=== PATIENT | female | born 1980 | race Caucasian/White ===

== ENCOUNTER → 2020-05-23 | Day surgery (SDC) | payer MEDICARE, MEDICAID ==
[~2020-05-23] MED LIST: BUSP5TAB78 PO; CHOL20007 PO; DexAMETHasone SOD PHOS 10MG/1ML VIAL INJ ONE; HYDR-4798 PO; HYDROmorphone HCL 2 MG/ML VL IV PRN; KETOROLAC TROMETH 30 MG/ML 1ML VIAL IV ONE; LABETALOL HCL 5 MG/ML 4ML SYRINGE IV PRN; LEVO125T7 PO; MIDAZOLAM HCL 1MG/1ML-2 ML VIAL IV PRN; MIDAZOLAM HCL 1MG/1ML-2 ML VIAL ONE; MORPHINE SULFATE 4 MG/ML SYR/VIAL IV PRN; ONDANSETRON HCL 4 MG/2 ML VIAL IV PRN; PROPOFOL 10 MG/ML 20 ML IV ONE; ePHEDrine SULFATE 50 MG/ML AMP IV PRN; fentaNYL CITRATE 100 MCG/2 ML VL ONE
[2020-05-23 09:00] VITALS: BP 140/75
== END | disposition home or self-care (01) ==
LOC: SUR 06:22
PROVIDERS: ATTEND Orthopaedic Surgery Sports Medicine
DX: M75.02 Adhesive capsulitis of left shoulder (principal); E10.42 Type 1 diabetes mellitus with diabetic polyneuropathy; G89.29 Other chronic pain; F31.9 Bipolar disorder, unspecified; Z88.0 Allergy status to penicillin; Z79.4 Long term (current) use of insulin; Z79.899 Other long term (current) drug therapy; Z98.891 History of uterine scar from previous surgery; Z98.890 Other specified postprocedural states; Z20.822 Contact with and (suspected) exposure to COVID-19; Z87.891 Personal history of nicotine dependence
CPT/HCPCS: 23700; 36415; 73020; 82962; 84702; J1100; J2250; J2704; J3010; U0003; 76000

== ENCOUNTER 2022-01-14 11:56 | Emergency (ER) | payer MEDICARE, MEDICAID ==
[~2022-01-14] VITALS: Ht 152.4 cm; Wt 50.0 kg
[~2022-01-14 11:56] MED LIST changes: -DexAMETHasone SOD PHOS 10MG/1ML VIAL INJ ONE; -HYDROmorphone HCL 2 MG/ML VL IV PRN; -KETOROLAC TROMETH 30 MG/ML 1ML VIAL IV ONE; -LABETALOL HCL 5 MG/ML 4ML SYRINGE IV PRN; -MIDAZOLAM HCL 1MG/1ML-2 ML VIAL IV PRN; -MIDAZOLAM HCL 1MG/1ML-2 ML VIAL ONE; -MORPHINE SULFATE 4 MG/ML SYR/VIAL IV PRN; -ONDANSETRON HCL 4 MG/2 ML VIAL IV PRN; -PROPOFOL 10 MG/ML 20 ML IV ONE; -ePHEDrine SULFATE 50 MG/ML AMP IV PRN; -fentaNYL CITRATE 100 MCG/2 ML VL ONE
[2022-01-14] MEDS ORDERED: LIDOCAINE 1% HCL (LOCAL ANESTH.) INJ 20ML MDV ID ONE (13:45)
[2022-01-14] MEDS ORDERED: CEPH-510 PO (14:31)
[2022-01-14] MEDS ORDERED: ACET-1158 PO (14:31)
[2022-01-14] MEDS ORDERED: IBUP600T27 PO (14:31)
[2022-01-14 14:52] VITALS: BP 108/78
== END 2022-01-14 14:58 | disposition home or self-care (01) ==
LOC: ER 11:56
DX: L02.31 Cutaneous abscess of buttock (principal); Z79.899 Other long term (current) drug therapy; Z88.0 Allergy status to penicillin
CPT/HCPCS: 10060; 99283; J2001

== ENCOUNTER 2022-01-28 19:54 | Inpatient (IN) | payer MEDICARE, MEDICAID ==
[~2022-01-28] VITALS: Ht 154.9 cm; Wt 57.0 kg
[~2022-01-28 19:54] MED LIST changes: +ACET-1158 PO; +CEPH-510 PO; +IBUP600T27 PO
[2022-01-28] MEDS ORDERED: ONDANSETRON ODT 4 MG TAB PO ONE (22:30)
[2022-01-28] MEDS ORDERED: MORPHINE SULFATE INJ 2 MG/ml SYRG IV ONE (22:30)
[2022-01-28] MEDS ORDERED: ACETAMINOPHEN 325 MG TAB PO PRN (22:45)
[2022-01-28] MEDS ORDERED: TEMAZEPAM 15 MG CAP PO PRN (22:45)
[2022-01-28] MEDS ORDERED: HYDROcodone-ACET 5/325MG TAB PO PRN (22:45)
[2022-01-28] MEDS ORDERED: ONDANSETRON HCL 4 MG/2 ML VIAL IV PRN (22:45)
[2022-01-28] MEDS ORDERED: MORPHINE SULFATE INJ 2 MG/ml SYRG IV PRN (22:45)
[2022-01-28 22:54] LABS: Basophils # (auto) 0.1 10 ^3/uL (0-0.2); Basophils % (auto) 0.6 % (0.0-2.0); Eosinophils # (auto) 0 10 ^3/uL (0-0.8); Eosinophils % (auto) 0.1 % (0.0-7.0); Hematocrit 37.1 % (36.0-46.0); Hemoglobin 12.6 g/dL (12.2-16.2); Lymphocytes # (auto) 0.7 10 ^3/uL (0.4-5.4); Lymphocytes % (auto) 4.5 % (10.0-50.0); Mean Corpuscular Hemoglobin 29.7 pg (28.0-32.0); Mean Corpuscular Volume 87.3 fL (80.0-100.0); Monocytes # (auto) 0.3 10 ^3/uL (0-1.3); Monocytes % (auto) 2.3 % (0.0-12.0); Neutrophils # (auto) 13.3 10 ^3/uL (1.6-8.6); Neutrophils % (auto) 92.5 % (37.0-80.0); Red Blood Cells 4.25 10^6/uL (4.0-5.20); Red Cell Distribution Width 13.8 % (11.8-14.3); White Blood Cell 14.4 10^3/uL (4.4-10.8)
[2022-01-28] MEDS: SODIUM CHLORIDE 0.9% 1,000 ML IV SCH (23:04)
[2022-01-28 23:08] LABS: INR 1.02 (0.9-1.15); Partial Thromboplastin Time 26.4 sec (24.6-33.4)
[2022-01-28 23:14] LABS: Albumin 3.7 g/dL (3.4-5.0); BUN/Creatinine Ratio 21.4; Calcium 8.7 mg/dL (8.5-10.1); Potassium 3.8 mmol/L (3.5-5.1)
[2022-01-28 23:17] LABS: Bilirubin, Total 0.4 mg/dL (0.2-1.0); Total Protein 7.5 g/dL (6.4-8.2)
[2022-01-29 05:00] VITALS: BP 101/61
[2022-01-29] MEDS ORDERED: DEXTROSE (50%) 50ML SYRG IV PRN ×2 (05:00→15:30)
[2022-01-29] MEDS ORDERED: ONDANSETRON HCL 4 MG/2 ML VIAL IV PRN ×3 (05:00→15:30)
[2022-01-29 05:09] LABS: Basophils # (auto) 0.1 10 ^3/uL (0-0.2); Basophils % (auto) 0.7 % (0.0-2.0); Eosinophils # (auto) 0 10 ^3/uL (0-0.8); Eosinophils % (auto) 0.2 % (0.0-7.0); Hematocrit 37.3 % (36.0-46.0); Hemoglobin 12.5 g/dL (12.2-16.2); Lymphocytes # (auto) 1.2 10 ^3/uL (0.4-5.4); Lymphocytes % (auto) 10.1 % (10.0-50.0); Mean Corpuscular Hemoglobin 29.5 pg (28.0-32.0); Mean Corpuscular Hgb Conc. 33.5 g/dL (32.0-36.0); Mean Corpuscular Volume 87.9 fL (80.0-100.0); Monocytes # (auto) 0.6 10 ^3/uL (0-1.3); Monocytes % (auto) 5.1 % (0.0-12.0); Neutrophils # (auto) 9.6 10 ^3/uL (1.6-8.6); Neutrophils % (auto) 83.9 % (37.0-80.0); Red Blood Cells 4.25 10^6/uL (4.0-5.20); Red Cell Distribution Width 13.7 % (11.8-14.3); White Blood Cell 11.4 10^3/uL (4.4-10.8)
[2022-01-29 05:24] LABS: Albumin 3.7 g/dL (3.4-5.0); Potassium 4.5 mmol/L (3.5-5.1)
[2022-01-29 05:29] LABS: BUN/Creatinine Ratio 20.6; Bilirubin, Total 0.7 mg/dL (0.2-1.0); Total Protein 6.8 g/dL (6.4-8.2)
[2022-01-29 05:30] VITALS: BP 101/61
[2022-01-29] MEDS: InsuLIN REG 1unit/0.01ml Soln (100units/ml) SC SCH ×4 (05:55→22:00)
[2022-01-29] MEDS: ACCU-CHEK COMFORT CURVE STRIP VI SCH ×4 (05:55→22:09)
[2022-01-29] MEDS ORDERED: DULO1CAP5 PO (07:52)
[2022-01-29 08:39] VITALS: BP 107/61
[2022-01-29] MEDS ORDERED: PANTOPRAZOLE 40 MG/10 ML VIAL INJ IV SCH (10:00)
[2022-01-29] MEDS ORDERED: ceFAZolin 1GM/50ML 100 ML IV ONE (10:21)
[2022-01-29] MEDS ORDERED: CLINDAMYCIN 600MG IV 50 ML IV ONE (10:23)
[2022-01-29] MEDS: SODIUM CHLORIDE 0.9% 1,000 ML IV SCH (12:05)
[2022-01-29] MEDS ORDERED: BUPIVACAINE 0.5% P/F INJ 10 ML VIAL ONE (13:07)
[2022-01-29] MEDS ORDERED: DexAMETHasone SOD PHOS 10MG/1ML VIAL INJ ONE (13:33)
[2022-01-29] MEDS ORDERED: KETOROLAC TROMETH 30 MG/ML 1ML VIAL ONE (13:33)
[2022-01-29] MEDS ORDERED: PROPOFOL 10 MG/ML 20 ML IV ONE (13:33)
[2022-01-29] MEDS ORDERED: ONDANSETRON HCL 4 MG/2 ML VIAL ONE (13:33)
[2022-01-29] MEDS ORDERED: SODIUM CHLORIDE LOCK 30 ML ONE (13:33)
[2022-01-29] MEDS ORDERED: PHENYLEPHRINE HCL 10 MG/ML VL ONE (13:33)
[2022-01-29] MEDS ORDERED: LIDOCAINE 1% INJ PF 5ML AMP ONE (13:33)
[2022-01-29] MEDS ORDERED: GLYCOPYRROLATE 0.2 MG/ML 1ML VIAL ONE (13:33)
[2022-01-29] MEDS ORDERED: SODIUM CHLORIDE LOCK 10 ML ONE (14:13)
[2022-01-29] MEDS ORDERED: HYDROmorphone HCL 2 MG/ML VL/or syr IV PRN ×2 (15:15→15:30)
[2022-01-29] MEDS ORDERED: ACETAMINOPHEN 325 MG TAB PO PRN (15:15)
[2022-01-29] MEDS: LACTATED RINGER'S 1,000 ML IV SCH (15:15)
[2022-01-29] MEDS ORDERED: FLUMAZENIL 0.1 MG/ML INJ 10ML MDV IV PRN (15:30)
[2022-01-29] MEDS ORDERED: hydrALAZINE HCL 20 MG/ML VL IV PRN (15:30)
[2022-01-29] MEDS ORDERED: NALOXONE HCL 0.4 MG/ML VIAL IV PRN (15:30)
[2022-01-29] MEDS ORDERED: LABETALOL HCL 5 MG/ML 4ML SYRINGE IV PRN (15:30)
[2022-01-29] MEDS ORDERED: fentaNYL CITRATE 100 MCG/2 ML VL IV PRN (15:30)
[2022-01-29] MEDS ORDERED: ePHEDrine SULFATE 50 MG/ML AMP IV PRN (15:30)
[2022-01-29 16:46] VITALS: BP 111/52
[2022-01-29] MEDS: CLINDAMYCIN 600MG IV 50 ML IV SCH ×2 (18:29→23:47)
[2022-01-29 22:00] VITALS: BP 96/52
[2022-01-29] MEDS: DOCUSATE SOD 100 MG CAP PO SCH (22:09)
[2022-01-29] MEDS: HYDROcodone-ACET 5/325MG TAB PO PRN (22:11)
[2022-01-30] MEDS: LACTATED RINGER'S 1,000 ML IV SCH ×3 (01:15→19:06)
[2022-01-30 05:00] VITALS: BP 109/63
[2022-01-30] MEDS: SODIUM CHLORIDE 0.9% 1,000 ML IV SCH ×2 (05:07→17:43)
[2022-01-30] MEDS: CLINDAMYCIN 600MG IV 50 ML IV SCH (05:07)
[2022-01-30] MEDS: HYDROcodone-ACET 5/325MG TAB PO PRN ×3 (05:08→21:20)
[2022-01-30 05:40] LABS: Albumin 2.9 g/dL (3.4-5.0); Calcium 8.3 mg/dL (8.5-10.1); Potassium 4.2 mmol/L (3.5-5.1)
[2022-01-30 05:44] LABS: BUN/Creatinine Ratio 25.4; Bilirubin, Total 0.5 mg/dL (0.2-1.0); Total Protein 6.1 g/dL (6.4-8.2)
[2022-01-30] MEDS: InsuLIN REG 1unit/0.01ml Soln (100units/ml) SC SCH ×5 (07:00→21:19)
[2022-01-30] MEDS: ACCU-CHEK COMFORT CURVE STRIP VI SCH ×4 (07:06→21:19)
[2022-01-30 09:00] VITALS: BP 96/57
[2022-01-30] MEDS: DOCUSATE SOD 100 MG CAP PO SCH ×2 (09:15→21:19)
[2022-01-30 13:00] VITALS: BP 115/54
[2022-01-30 17:00] VITALS: BP 100/49
[2022-01-30 21:35] LABS: Urine Blood Negative /uL (Negative); Urine Specific Gravity 1.028 (1.001-1.035)
[2022-01-30 22:00] VITALS: BP 99/60
[2022-01-31] MEDS: HYDROcodone-ACET 5/325MG TAB PO PRN ×3 (04:58→14:54)
[2022-01-31 05:00] VITALS: BP 111/62
[2022-01-31] MEDS: ACCU-CHEK COMFORT CURVE STRIP VI SCH ×2 (05:49→16:39)
[2022-01-31] MEDS: InsuLIN REG 1unit/0.01ml Soln (100units/ml) SC SCH ×2 (05:50→11:30)
[2022-01-31] MEDS: LACTATED RINGER'S 1,000 ML IV SCH (07:15)
[2022-01-31 09:00] VITALS: BP 123/93
[2022-01-31] MEDS: SODIUM CHLORIDE 0.9% 1,000 ML IV SCH (09:48)
[2022-01-31] MEDS: DOCUSATE SOD 100 MG CAP PO SCH (10:00)
[2022-01-31] MEDS ORDERED: HYDR-4798 PO ×2 (12:17→13:32)
[2022-01-31 13:00] VITALS: BP 129/60
[2022-01-31 14:10] VITALS: BP 111/62
== END 2022-01-31 15:00 | disposition home or self-care (01) | DRG 482 ==
LOC: ER 19:58 → OVERFLOW 22:45 → EAST 01-29 05:08
PROVIDERS: ADMIT Nurse Practitioner; ATTEND Internal Medicine
PROC: 0QS604Z Reposition Right Upper Femur with Internal Fixation Device, Open Approach (ICD-10-PCS; principal; 2022-01-29 12:36)
DX: S72.144A Nondisplaced intertrochanteric fracture of right femur, initial encounter for closed fracture (principal); S60.511A Abrasion of right hand, initial encounter; W01.0XXA Fall on same level from slipping, tripping and stumbling without subsequent striking against object, initial encounter; Y93.01 Activity, walking, marching and hiking; E11.9 Type 2 diabetes mellitus without complications; Z20.822 Contact with and (suspected) exposure to COVID-19; Z88.0 Allergy status to penicillin; Z80.3 Family history of malignant neoplasm of breast; Z79.4 Long term (current) use of insulin; Y92.89 Other specified places as the place of occurrence of the external cause; Y99.8 Other external cause status
CPT/HCPCS: 36415; 71045; 73130; 73501; 73502; 76000; 80053; 81003; 82962; 84702; 85025; 85610; 85730; 86850; 86900; 86901; 87426; 96374; 97110; 97116; 97163; 97530; A4565; G0378; J0690; J1100; J1815; J1885; J2405; J2704; J3490; Q0162

== ENCOUNTER 2024-02-23 09:18 | Emergency (ER) | payer MEDICARE, MEDICAID ==
[~2024-02-23] VITALS: Ht 160 cm; Wt 61.1 kg
[~2024-02-23 09:18] MED LIST changes: -ACET-1158 PO; +ACET500T58 PO; +DULO1CAP5 PO; +IBUP-1454 PO; -IBUP600T27 PO
[2024-02-23 10:21] VITALS: BP 140/97; TEMP 98.2
[2024-02-23 10:22] VITALS: PULSE 95; RESP 16; O2SAT 98
--- NOTE | 2024-02-23 10:40 | ED.PDOC ---
Back pain HPI HPI Comments 43-year-old female with a history of Right hip fracture in 2021, chronic left shoulder and right hip pain presents with a chief complaint of a flare-up to the bilateral hands, left shoulder, right hip. Symptoms started two weeks ago and patient reports they are progressively worsening. Pain is currently rated 7/10. She sees Dr. Larson for her hip and shoulder pain. Chief Complaint: Body Pain Time Seen by MD: 09:59 Reviewed Notes: Nurses Notes, Medications, Allergies Allergies: Coded Allergies: Penicillins (Verified Allergy, Severe, RASH HIVES, 05/23/20) Home Meds Active Scripts Hydrocodone-Acetaminophen (Hydrocodone Bitartrate/AC 10-325 mg) 1 Tab Tab, 1 TAB PO QID, #30 TAB Prov:LUZ MARIA SARAVIA MD 01/31/22 Acetaminophen (Acetaminophen) 500 Mg Tab, 500 MG PO Q4HPRN PRN, #30 TAB Prov:OLIVER MCGILL PAC 01/14/22 Ibuprofen (Ibuprofen) 600 Mg Tab, 1 TAB PO QIDP, #30 TAB Prov:OLIVER MCGILL PAC 01/14/22 Cephalexin ( Keflex 500) 500 Mg Cap, 1 CAP PO QID for 10 Days, #40 CAP Prov:OLIVER MCGILL PAC 01/14/22 Reported Medications Hydrocodone-Acetaminophen (Hydrocodone Bitartrate/AC 10-325 mg) 1 Tab Tab, 1 TAB PO Q6HP PRN for PAIN SCALE 7 THRU 10, TAB 01/31/22 Duloxetine HCl (Duloxetine HCl) 30 Mg Cap, 1 TAB PO DAILY 01/29/22 Cholecalciferol (VITAMIN D3) 2,000 Unit Tab, 1 TAB PO DAILY, #30 TAB 5 Refills 05/19/20 Levothyroxine Sodium (Levothyroxine Sodium) 125 Mcg Tab, 1 TAB PO DAILY, #30 TAB 5 Refills 05/19/20 Buspirone HCl (Buspirone Hydrochloride) 5 Mg Tab, 5 MG PO DAILY, #2 TAB 05/19/20 Information Source: Patient Mode of Arrival: Ambulatory Past Medical History PAST MEDICAL HISTORY: DM 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 Pertinent ORTHOPEDIC TECHNICIAN History Family History Family History: Unknown Social History Smoker: Non-Smoker Alcohol: Denies ETOH Use Drugs: Denies Drug Use Lives In: Home All Other Systems: Reviewed and Negative (per hpi) Physical Exam General Appearance: No Apparent Distress, Normal HEENT: Normal ENT Inspection, Pharynx Normal, TMs Normal Neck: Full Range of Motion, Non-Tender, Normal, Normal Inspection Respiratory: Chest Non-Tender, Lungs Clear, No Accessory Muscle Use, No Respiratory Distress, Normal Breath Sounds Cardiovascular: No Edema, No JVD, No Murmur, No Gallop, Normal Peripheral Pulses, Regular Rate/Rhythm Breast Exam: Deferred Gastrointestinal: No Organomegaly, Non Tender, No Pulsatile Mass, Normal Bowel Sounds, Soft Genitalia: Deferred Pelvic: Deferred Rectal: Deferred Extremities: No calf tenderness, Normal capillary refill, Normal inspection, Normal range of motion, Non-tender, No pedal edema Musculoskeletal : Apperance: Normal Neurologic: Alert, No Motor Deficits, Normal Affect, Normal Mood, No Sensory Deficits Cerebellar Function: Normal Reflexes: Normal Skin: Dry, Normal Color, Warm Lymphatic: No Adenopathy Was a procedure done? Was a procedure done?: No Back Pain Differential Dx Differential Diagnosis: Musculoskeletal Pain, Other X-Ray, Labs, Meds, VS Vital Signs Date Time Temp Pulse Resp B/P (MAP) Pulse Ox O2 Delivery O2 Flow Rate FiO2 02/23/24 10:22 95 16 98 Room Air* 0 21 02/23/24 10:21 98.2 95 16 140/97 (111) 98 98.2 02/23/24 09:22 98.2 95 16 140/97 (111) 98 Lab Test 02/23/24 10:47 Range/Units White Blood Count 6.7 4.4-10.8 10^3/uL Red Blood Count 4.61 4.0-5.20 10^6/uL Hemoglobin 13.6 12.2-16.2 g/dL Hematocrit 40.5 36.0-46.0 % Mean Corpuscular Volume 87.9 80.0-100.0 fL Mean Corpuscular Hemoglobin 29.5 28.0-32.0 pg Mean Corpuscular Hemoglobin Concent 33.6 32.0-36.0 g/dL Red Cell Distribution Width 14.4 H 11.8-14.3 % Platelet Count 290 140-450 10^3/uL Mean Platelet Volume 7.1 6.9-10.8 fL Neutrophils (%) (Auto) 66.2 37.0-80.0 % Lymphocytes (%) (Auto) 26.5 10.0-50.0 % Monocytes (%) (Auto) 4.6 0.0-12.0 % Eosinophils (%) (Auto) 1.2 0.0-7.0 % Basophils (%) (Auto) 1.5 0.0-2.0 % Neutrophils # (Auto) 4.4 1.6-8.6 10 ^3/uL Lymphocytes # (Auto) 1.8 0.4-5.4 10 ^3/uL Monocytes # (Auto) 0.3 0-1.3 10 ^3/uL Eosinophils # (Auto) 0.1 0-0.8 10 ^3/uL Basophils # (Auto) 0.1 0-0.2 10 ^3/uL Nucleated Red Blood Cells 0.0 % Sodium Level 136 136-145 mmol/L Potassium Level 4.1 3.5-5.1 mmol/L Chloride Level 104 98-107 mmol/L Carbon Dioxide Level 26 20-31 mmol/L Anion Gap 6 5-15 Blood Urea Nitrogen 12 9-23 mg/dL Creatinine 0.83 0.550-1.02 mg/dL Glomerular Filtration Rate Calc 90 >90 mL/min BUN/Creatinine Ratio 14.5 10.0-20.0 Serum Glucose 173 H 74-106 mg/dL Calcium Level 9.6 8.7-10.4 mg/dL X-Ray, Labs, Meds, VS Comment Patient is stable for discharge at this time. External notes reviewed. Test results and diagnostic imaging interpreted. All diagnostic findings, discharge care, education and instructions provided Follow-up with PCP in 2 to 3 days Patient verbalized understanding and agreed to treatment plan Vital signs stable, afebrile, no acute distress noted Patient ambulatory with strong steady gait Advised to return precautions for any new or worsening symptoms, return to ER immediately for re-evaluation Patient is aware that the purpose of this visit was for an acute medical emergency requiring emergent stabilization. Chronic conditions, including malignancies have not been ruled out. Patient is instructed to follow up with PCP as directed and discharge instructions for continued care and workup. If unable to arrange follow-up, patient is to return to the emergency department for reassessment. Patient (parent or legal guardian if applicable) was given verbal and written discharge instructions and acknowledges understanding. Time of 1ST Reevaluation: 10:40 Reevaluation 1ST: Improved Patient Education/Counseling: Diagnosis, Treatment Family Education/Counseling: Diagnosis, Treatment Departure 1 Departure Time of Disposition: 12:18 Impression: Primary Impression: Left shoulder pain Qualified Codes: M25.512 - Pain in left shoulder; G89.29 - Other chronic pain Additional Impressions: Hand pain Qualified Codes: M79.641 - Pain in right hand; M79.642 - Pain in left hand Hip pain Qualified Codes: M25.551 - Pain in right hip Disposition: 01 HOME / SELF CARE / HOMELESS Condition: Stable e-Prescriptions Meloxicam (Meloxicam) 7.5 Mg Tab 1 TAB PO DAILY for 30 Days, #30 TAB 0 Refills Prov: KATYA ARMSTRONG NP 02/23/24 Critical Care Note Critical Care Time?: No Stability Stability form required: No Heart Score Heart Score: Heart Score Response (Comments) Value History N/A 0 EKG N/A 0 Age N/A 0 Risk Factors N/A 0 Troponin N/A 0 Total 0 KATYA ARMSTRONG NP Feb 23, 2024 10:40
--- NOTE | 2024-02-23 11:18 | DVH ---
XY R HIP 1V XRAY INDICATION: chronic pains. hx of surgery 2021 TECHNICAL DATA: Frontal radiographs of the right hip COMPARISON: R HIP 1V XRAY on DOS: 01/29/22 FINDINGS: There is a right intramedullary nail with a proximal and distal screw. Hardware is intact. No acute fracture. IMPRESSION: 1. Status post ORIF right hip. No acute fracture or dislocation.
--- NOTE | 2024-02-23 11:19 | DVH ---
XY L SHOULDER 2+ VIEW XRAY INDICATION: chronic pains TECHNICAL DATA: 3 views were obtained of the left shoulder. COMPARISON: None FINDINGS: There is no fracture or focal bone abnormality. The glenohumeral joint is normally maintained. The ac romioclavicular joint appears normal. The humeral head is not high riding. Degenerative changes are n oted involving the visualized spine. IMPRESSION: 1. No acute fracture or dislocation of the left shoulder.
--- NOTE | 2024-02-23 11:20 | DVH ---
XY L HAND 2V XRAY INDICATION: chronic pains TECHNICAL DATA: Frontal, oblique and lateral views were obtained of the left hand. COMPARISON: None FINDINGS: No fracture is identified. Joint spaces are maintained. Alignment is anatomic. Soft tissues are withi n normal limits. IMPRESSION: 1. No acute fracture or dislocation of the left hand.
--- NOTE | 2024-02-23 11:20 | DVH ---
CLINICAL INFORMATION: 43 years old, Female; chronic pains. TECHNIQUE: 3 views of the right hand were obtained. COMPARISON: None FINDINGS: No acute fracture or dislocation. No significant arthropathy. Adjacent soft tissues are unr emarkable. IMPRESSION: 1. No evidence of acute bony abnormality.
[2024-02-23 11:44] LABS: Basophils # (auto) 0.1 10 ^3/uL (0-0.2); Basophils % (auto) 1.5 % (0.0-2.0); Eosinophils # (auto) 0.1 10 ^3/uL (0-0.8); Eosinophils % (auto) 1.2 % (0.0-7.0); Hematocrit 40.5 % (36.0-46.0); Hemoglobin 13.6 g/dL (12.2-16.2); Lymphocytes # (auto) 1.8 10 ^3/uL (0.4-5.4); Lymphocytes % (auto) 26.5 % (10.0-50.0); Mean Corpuscular Hemoglobin 29.5 pg (28.0-32.0); Mean Corpuscular Hgb Conc. 33.6 g/dL (32.0-36.0); Mean Corpuscular Volume 87.9 fL (80.0-100.0); Monocytes # (auto) 0.3 10 ^3/uL (0-1.3); Monocytes % (auto) 4.6 % (0.0-12.0); Neutrophils # (auto) 4.4 10 ^3/uL (1.6-8.6); Neutrophils % (auto) 66.2 % (37.0-80.0); Platelet Count (auto) 290 10^3/uL (140-450); Red Blood Cells 4.61 10^6/uL (4.0-5.20); Red Cell Distribution Width 14.4 % (11.8-14.3); White Blood Cell 6.7 10^3/uL (4.4-10.8)
[2024-02-23 11:59] LABS: Chloride 104 mmol/L (98-107); Potassium 4.1 mmol/L (3.5-5.1); Sodium 136 mmol/L (136-145)
[2024-02-23 12:00] LABS: Anion Gap 6 (5-15); Calcium 9.6 mg/dL (8.7-10.4); Carbon Dioxide 26 mmol/L (20-31)
[2024-02-23 12:05] LABS: BUN/Creatinine Ratio 14.5 (10.0-20.0); Blood Urea Nitrogen 12 mg/dL (9-23)
[2024-02-23 12:10] LABS: Glucose 173 mg/dL (74-106)
[2024-02-23] MEDS ORDERED: MELO7.5T7 PO (12:19)
== END 2024-02-23 12:28 | disposition home or self-care (01) ==
LOC: ER 09:18
DX: M25.512 Pain in left shoulder (principal); M25.551 Pain in right hip; M79.641 Pain in right hand; M79.642 Pain in left hand; E11.9 Type 2 diabetes mellitus without complications; Z98.890 Other specified postprocedural states; Z88.0 Allergy status to penicillin; Z79.899 Other long term (current) drug therapy
CPT/HCPCS: 36415; 73030; 73120; 73501; 80048; 85025

== ENCOUNTER 2024-08-09 09:55 | Emergency (ER) | payer MEDICARE, MEDICAID ==
[~2024-08-09] VITALS: Ht 154.9 cm; Wt 52.0 kg
[~2024-08-09 09:55] MED LIST changes: +MELO7.5T7 PO
[2024-08-09 10:58] VITALS: PULSE 84
--- NOTE | 2024-08-09 12:48 | ED.PDOC ---
Musculoskeletal HPI Comments 43-year-old female with PMHx DM presents with a chief complaint of tingling to left hand x 6 days. Patient mentions that she has been also been feeling left wrist pain Patient reports that she has been taking [place] for the pain. Patient believes that her numbness is originating due to her DM2. Denies limitations in her range of motion Denies numbness tingling Denies unilateral weakness Chief Complaint: Upper Extremity Time Seen by MD: 12:43 Primary Care Provider: Inez Benz Notes: Nurses Notes, Medications, Allergies Allergies: Coded Allergies: Penicillins (Verified Allergy, Severe, RASH HIVES, 05/23/20) Home Meds Active Scripts Gabapentin (Once-Daily) (Gabapentin) 300 Mg Tab, 300 MG PO QHSP PRN for 30 Days, #30 TAB 0 Refills Prov:KATYA ARMSTRONG ROUTING CLERK 08/09/24 Meloxicam (Meloxicam) 7.5 Mg Tab, 1 TAB PO DAILY for 30 Days, #30 TAB 0 Refills Prov:KATYA ARMSTRONG ROUTING CLERK 02/23/24 Hydrocodone-Acetaminophen (Hydrocodone Bitartrate/AC 10-325 mg) 1 Tab Tab, 1 TAB PO QID, #30 TAB Prov:LUZ MARIA SARAVIA MD 01/31/22 Acetaminophen (Acetaminophen) 500 Mg Tab, 500 MG PO Q4HPRN PRN, #30 TAB Prov:OLIVER MCGILL PAC 01/14/22 Ibuprofen (Ibuprofen) 600 Mg Tab, 1 TAB PO QIDP, #30 TAB Prov:OLIVER MCGILL PAC 01/14/22 Cephalexin ( Keflex 500) 500 Mg Cap, 1 CAP PO QID for 10 Days, #40 CAP Prov:OLIVER MCGILL PAC 01/14/22 Reported Medications Hydrocodone-Acetaminophen (Hydrocodone Bitartrate/AC 10-325 mg) 1 Tab Tab, 1 TAB PO Q6HP PRN for PAIN SCALE 7 THRU 10, TAB 01/31/22 Duloxetine HCl (Duloxetine HCl) 30 Mg Cap, 1 TAB PO DAILY 01/29/22 Cholecalciferol (VITAMIN D3) 2,000 Unit Tab, 1 TAB PO DAILY, #30 TAB 5 Refills 05/19/20 Levothyroxine Sodium (Levothyroxine Sodium) 125 Mcg Tab, 1 TAB PO DAILY, #30 TAB 5 Refills 05/19/20 Buspirone HCl (Buspirone Hydrochloride) 5 Mg Tab, 5 MG PO DAILY, #2 TAB 05/19/20 Information Source: Patient Mode of Arrival: Ambulatory Location: Left Extremity Location: Hand Timing: Days Prehospital treatment: None Severity: Moderate Able to Move Extremity: Yes Bear Weight: Fully Pain: Moderate Hand Dominance: Right Mechanism: Spontaneous Circumstances: Spontaneous Onset of Symptoms: Spontaneous DVT Risk Factors: NONE Last Tetanus: UTD Past Medical History PAST MEDICAL HISTORY: DM 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 PRINTER MACHINE History Family History Family History: Unknown Social History Smoker: Non-Smoker Alcohol: Denies ETOH Use Drugs: Denies Drug Use Lives In: Home Constitutional: denies: chills, diaphoresis, fatigue, fever, malaise, sweats, weakness, others EENTM: denies: blurred vision, double vision, ear bleeding, ear discharge, ear drainage, ear pain, ear ringing, eye pain, eye redness, hearing loss, mouth pain, mouth swelling, nasal discharge, nose bleeding, nose congestion, nose pain, photophobia, tearing, throat pain, throat swelling, voice changes, others Respiratory: denies: cough, hemoptysis, orthopnea, SOB at rest, shortness of breath, SOB with excertion, stridor, wheezing, others Cardiovascular: denies: chest pain, dizzy spells, diaphoresis, Dyspnea on exertion, edema, irregular heart beat, left arm pain, lightheadedness, palpitations, PND, syncope, others Gastrointestinal: denies: abdomen distended, abdominal pain, blood streaked bowels, constipated, diarrhea, dysphagia, difficulty swallowing, hematemesis, melena, nausea, poor appetite, poor fluid intake, rectal bleeding, rectal pain, vomiting, others Genitourinary: denies: abnormal vagina bleeding, burning, dyspareunia, dysuria, flank pain, frequency, hematuria, incontinence, pain, , vagina discharge, urgency, others Neurological: reports: numbness; denies: dizziness, fainting, headache, left sided numbness, left sided weakness, paresthesia, pre-existing deficit, right sided numbness, right sided weakness, seizure, speech problems, tingling, tremors, weakness, others Musculoskeletal: denies: back pain, gout, joint pain, joint swelling, muscle pain, muscle stiffness, neck pain, others Integumetry: denies: bruises, change in color, change in hair/nails, dryness, laceration, lesions, lumps, rash, wounds, others Allergic/Immunocompromised: denies: Difficulty Healing, Frequent Infections, Hives, Itching, others Hematologic/Lymphatic: denies: anemia, blood clots, easy bleeding, easy bruising, swollen glands, others Endocrine: denies: excessive hunger, excessive sweating, excessive thirst, excessive urination, flushing, intolerance to cold, intolerance to heat, unexplained weight gain, unexplained weight loss, others Psychiatric: denies: anxiety, bipolar disorder, depression, hopeless, panic disorder, schizophrenia, sleepless, suicidal, others All Other Systems: Reviewed and Negative Physical Exam General Appearance: No Apparent Distress, Normal HEENT: Normal ENT Inspection, Pharynx Normal, TMs Normal Neck: Full Range of Motion, Non-Tender, Normal, Normal Inspection Respiratory: Chest Non-Tender, Lungs Clear, No Accessory Muscle Use, No Respiratory Distress, Normal Breath Sounds Cardiovascular: No Edema, No JVD, No Murmur, No Gallop, Normal Peripheral Pulses, Regular Rate/Rhythm Breast Exam: Deferred Gastrointestinal: No Organomegaly, Non Tender, No Pulsatile Mass, Normal Bowel Sounds, Soft Genitalia: Deferred Pelvic: Deferred Rectal: Deferred Extremities: No calf tenderness, Normal capillary refill, Normal inspection, Normal range of motion, Non-tender, No pedal edema Musculoskeletal : Apperance: Normal Neurologic: Alert, electric meter reader II-XII nml as Tested, No Motor Deficits, Normal Affect, Normal Mood, No Sensory Deficits Cerebellar Function: Normal Reflexes: Normal Skin: Dry, Normal Color, Warm Lymphatic: No Adenopathy Was a procedure done? Was a procedure done?: No Differential Diagnosis EXT Differential Diagnosis: Other X-Ray, Labs, Meds, VS Vital Signs Date Time Temp Pulse Resp B/P (MAP) Pulse Ox O2 Delivery O2 Flow Rate FiO2 08/09/24 14:25 98.1 17 98/54 (69) 98 98.1 08/09/24 10:58 84 16 95 Room Air 08/09/24 10:58 98.7 84 16 114/71 (85) 95 98.7 08/09/24 10:05 98.2 85 18 147/83 (104) 100 98.2 Lab Test 08/09/24 14:46 08/09/24 12:45 Range/Units Urine Color Yellow Yellow Urine Clarity Turbid H Clear Urine pH 5.5 5.0-9.0 Urine Specific [place] 1.027 1.001-1.035 Urine Protein Negative Negative Urine Ketones Negative Negative Urine Blood 1+ H Negative /uL Urine Nitrite Negative Negative Urine Bilirubin Negative Negative Urine Urobilinogen Normal Negative mg/dL Urine Leukocyte Esterase 2+ Negative /uL Urine RBC 6 0 - 4 /hpf Urine Microscopic WBC 10 H 0-5 /HPF Urine Squamous Epithelial Cells Mod <5 /hpf Urine Bacteria None seen None Seen /hpf Urine Mucus Few None Seen Urine Glucose Normal Normal mg/dL White Blood Count 5.9 4.4-10.8 10^3/uL Red Blood Count 4.50 4.0-5.20 10^6/uL Hemoglobin 13.2 12.2-16.2 g/dL Hematocrit 38.5 36.0-46.0 % Mean Corpuscular Volume 85.5 80.0-100.0 fL Mean Corpuscular Hemoglobin 29.3 28.0-32.0 pg Mean Corpuscular Hemoglobin Concent 34.3 32.0-36.0 g/dL Red Cell Distribution Width 14.1 11.8-14.3 % Platelet Count 377 140-450 10^3/uL Mean Platelet Volume 6.7 L 6.9-10.8 fL Neutrophils (%) (Auto) 57.6 37.0-80.0 % Lymphocytes (%) (Auto) 33.0 10.0-50.0 % Monocytes (%) (Auto) 5.4 0.0-12.0 % Eosinophils (%) (Auto) 0.9 0.0-7.0 % Basophils (%) (Auto) 3.1 H 0.0-2.0 % Neutrophils # (Auto) 3.4 1.6-8.6 10 ^3/uL Lymphocytes # (Auto) 2.0 0.4-5.4 10 ^3/uL Monocytes # (Auto) 0.3 0-1.3 10 ^3/uL Eosinophils # (Auto) 0.1 0-0.8 10 ^3/uL Basophils # (Auto) 0.2 0-0.2 10 ^3/uL Nucleated Red Blood Cells 0.0 % Sodium Level 141 136-145 mmol/L Potassium Level 4.0 3.5-5.1 mmol/L Chloride Level 107 98-107 mmol/L Carbon Dioxide Level 27 20-31 mmol/L Anion Gap 7 5-15 Blood Urea Nitrogen 16 9-23 mg/dL Creatinine 0.73 0.550-1.02 mg/dL Glomerular Filtration Rate Calc 105 >90 mL/min BUN/Creatinine Ratio 21.9 H 10.0-20.0 Serum Glucose 123 H 74-106 mg/dL Calcium Level 9.7 8.7-10.4 mg/dL Total Bilirubin 0.4 0.2-1.0 mg/dL Aspartate Amino Transferase (AST) 9 L 13-40 U/L Alanine Aminotransferase (ALT) 10 7-40 U/L Alkaline Phosphatase 43 L 46-116 U/L Total Protein 7.0 5.7-8.2 g/dL Albumin 4.5 3.2-4.8 g/dL X-Ray, Labs, Meds, VS Comment Patient is stable for discharge at this time. External notes reviewed. Test results and diagnostic imaging interpreted. All diagnostic findings, discharge care, education and instructions provided Follow-up with PCP in 2 to 3 days Patient verbalized understanding and agreed to treatment plan Vital signs stable, afebrile, no acute distress noted Patient ambulatory with strong steady gait Advised to return precautions for any new or worsening symptoms, return to ER immediately for re-evaluation Patient is aware that the purpose of this visit was for an acute medical emergency requiring emergent stabilization. Chronic conditions, including malignancies have not been ruled out. Patient is instructed to follow up with PCP as directed and discharge instructions for continued care and workup. If unable to arrange follow-up, patient is to return to the emergency department for reassessment. Patient (parent or legal guardian if applicable) was given verbal and written discharge instructions and acknowledges understanding. Time of 1ST Reevaluation: 13:09 Reevaluation 1ST: Unchanged Patient Education/Counseling: Diagnosis, Treatment, Prognosis Family Education/Counseling: Diagnosis, Treatment Departure 1 Departure Time of Disposition: 13:43 Impression: Primary Impression: Neuropathy Disposition: HOME / SELF CARE / HOMELESS Condition: Stable e-Prescriptions Gabapentin (Once-Daily) (Gabapentin) 300 Mg Tab 300 MG PO QHSP PRN for 30 Days, #30 TAB 0 Refills Prov: KATYA ARMSTRONG NP 08/09/24 Critical Care Note Critical Care Time?: No Stability Stability form required: No Heart Score Heart Score: Heart Score Response (Comments) Value History N/A 0 EKG N/A 0 Age N/A 0 Risk Factors N/A 0 Troponin N/A 0 Total 0 I personally scribed for KATYA ARMSTRONG ROUTING CLERK ([email or web address]) on 08/09/24 at 12:48. E lectronically submitted by Rao Escalante ([email or web address]). KATYA ARMSTRONG NP Aug 09, 2024 12:48
[2024-08-09 13:03] LABS: Basophils # (auto) 0.2 10 ^3/uL (0-0.2); Basophils % (auto) 3.1 % (0.0-2.0); Eosinophils # (auto) 0.1 10 ^3/uL (0-0.8); Eosinophils % (auto) 0.9 % (0.0-7.0); Hematocrit 38.5 % (36.0-46.0); Hemoglobin 13.2 g/dL (12.2-16.2); Mean Corpuscular Hemoglobin 29.3 pg (28.0-32.0); Mean Corpuscular Hgb Conc. 34.3 g/dL (32.0-36.0); Mean Corpuscular Volume 85.5 fL (80.0-100.0); Monocytes # (auto) 0.3 10 ^3/uL (0-1.3); Monocytes % (auto) 5.4 % (0.0-12.0); Neutrophils # (auto) 3.4 10 ^3/uL (1.6-8.6); Neutrophils % (auto) 57.6 % (37.0-80.0); Platelet Count (auto) 377 10^3/uL (140-450); Red Cell Distribution Width 14.1 % (11.8-14.3); White Blood Cell 5.9 10^3/uL (4.4-10.8)
[2024-08-09 13:24] LABS: Alanine Aminotransferase 10 U/L (7-40); Albumin 4.5 g/dL (3.2-4.8); Alkaline Phosphatase 43 U/L (46-116); Anion Gap 7 (5-15); Aspartate Aminotransferase 9 U/L (13-40); BUN/Creatinine Ratio 21.9 (10.0-20.0); Bilirubin, Total 0.4 mg/dL (0.2-1.0); Blood Urea Nitrogen 16 mg/dL (9-23); Calcium 9.7 mg/dL (8.7-10.4); Carbon Dioxide 27 mmol/L (20-31); Chloride 107 mmol/L (98-107); Glucose 123 mg/dL (74-106); Sodium 141 mmol/L (136-145)
[2024-08-09] MEDS ORDERED: GABA300T4 PO (13:43)
[2024-08-09 14:25] VITALS: BP 98/54; RESP 17; TEMP 98.1; O2SAT 98
[2024-08-09 14:49] LABS: Urine Bacteria None Seen /hpf (None Seen)
[2024-08-09 15:37] LABS: Urine Blood 1+ /uL (Negative); Urine Clarity Turbid (Clear); Urine Color Yellow (Yellow); Urine Mucus FEW (None Seen); Urine Protein, UAD Negative (Negative); Urine Specific Gravity 1.027 (1.001-1.035); Urine Squamous Epithelial Cell MOD /hpf (<5); Urine Urobilinogen Normal (Negative); Urine WBC 10 /HPF (0-5); Urine pH 5.5 (5.0-9.0)
== END 2024-08-09 14:29 | disposition home or self-care (01) ==
LOC: ER 09:55
DX: E11.40 Type 2 diabetes mellitus with diabetic neuropathy, unspecified (principal); Z88.0 Allergy status to penicillin; Z79.899 Other long term (current) drug therapy
CPT/HCPCS: 36415; 80053; 81001; 85025